=== PATIENT | male | born 1985 | race Caucasian/White ===

== ENCOUNTER 2023-10-16 00:40 | Emergency (ER) | payer MEDICAID, OTHER ==
[~2023-10-16] VITALS: Ht 193 cm; Wt 99.8 kg
[2023-10-16 00:50] VITALS: PULSE 107; RESP 18; TEMP 98; O2SAT 100
[2023-10-16] MEDS ORDERED: LIDOCAINE MPF 1% 5 ML ONE (01:49)
[2023-10-16] MEDS ORDERED: cefTRIAXone 1,000 MG VIAL ONE (01:49)
[2023-10-16] MEDS: cefTRIAXone 1,000 MG in LIDOCAINE MPF 1% 2.1 ML IM ONE (02:16)
[2023-10-16] MEDS: KETOROLAC 60 MG/2 ML VIAL IM ONE (02:17)
[2023-10-16 02:30] VITALS: PULSE 100; RESP 18; TEMP 98; O2SAT 100
[2023-10-16] MEDS ORDERED: IBUP-2213 PO (02:30)
[2023-10-16] MEDS ORDERED: AMOX1TAB8 PO (02:30)
== END 2023-10-16 02:30 | disposition home or self-care (01) ==
LOC: MED 00:40
DX: J02.9 Acute pharyngitis, unspecified (principal); Z79.1 Long term (current) use of non-steroidal anti-inflammatories (NSAID); Z79.2 Long term (current) use of antibiotics; Z79.899 Other long term (current) drug therapy; Z88.1 Allergy status to other antibiotic agents
CPT/HCPCS: 96372; 99284; J0696; J1885; J2001